=== PATIENT | female | born 1975 | race Caucasian/White ===

== ENCOUNTER → 2017-08-05 | Outpatient (CLI) | payer OTHER | LOC: FIMAGING 08:38 | PROVIDERS: ATTEND Obstetrics & Gynecology | DX: Z12.31 Encounter for screening mammogram for malignant neoplasm of breast (principal) | CPT/HCPCS: G0202 ==

== ENCOUNTER 2018-08-10 18:14 | Emergency (ER) | payer OTHER ==
--- NOTE | 2018-08-10 18:54 | EDPHY ---
H & P Stated Complaint: cp Time Seen by Provider: 08/10/18 18:26 HPI/ROS: CHIEF COMPLAINT: Chest pain HISTORY OF PRESENT ILLNESS: 43-year-old female presents with chest pain. Onset of central chest pain 1 month ago. The pain has been constant, without aggravating or alleviating factors. No associated symptoms. Sometimes the pain migrates to the right upper quadrant and epigastrium. No change with food. Significant stressors recently. No other associated symptoms. REVIEW OF SYSTEMS: complete 10 point ROS reviewed and is negative except for the noted elements in the HPI - Personal History LMP (Females 10-55): Now Current Tetanus/Diphtheria Vaccine: No Current Tetanus Diphtheria and Acellular Pertussis (TDAP): No - Medical/Surgical History Hx Asthma: No Hx Chronic Respiratory Disease: No Hx Diabetes: No Hx Cardiac Disease: No Hx Renal Disease: No Hx Cirrhosis: No Hx Alcoholism: No Hx HIV/AIDS: No Hx Splenectomy or Spleen Trauma: No Other PMH: hypothyroid, - Social History Smoking Status: Former smoker - Physical Exam Exam: General Appearance: Alert, pleasant Eyes: Pupils equal and round, no conjunctival pallor or injection ENT, Mouth: Mucous membranes moist Neck: Normal inspection Respiratory: Lungs are clear to auscultation Cardiovascular: Regular rate and rhythm Gastrointestinal: Abdomen is soft and nontender Neurological: A&O, nonfocal, normal gait Skin: Warm and dry, no rash Extremities: Nontender, no pedal edema Psychiatric: Mood and affect normal Constitutional: Initial Vital Signs Temperature (C) 37 C 08/10/18 18:20 Heart Rate 87 08/10/18 18:20 Respiratory Rate 16 08/10/18 18:20 Blood Pressure 115/82 H 08/10/18 18:20 O2 Sat (%) 99 08/10/18 18:20 O2 Delivery Mode Room Air Allergies/Adverse Reactions: cefaclor [From Ceclor] Allergy (Severe, Verified 08/10/18 18:19) rifampin [Rifampin] Allergy (Severe, Verified 08/10/18 18:19) Penicillins Allergy (Unknown, Verified 08/10/18 18:19) Home Medications: Medication Instructions Recorded Thyroid 08/10/18 Medical Decision Making - Diagnostics EKG Interpretation: EKG interpreted by me reveals normal sinus rhythm, rate 79, low voltage, no ST or T segment changes. Interpretation: o/w normal EKG. Imaging Results: Imaging Impressions Chest X-Ray 08/10/18 18:26 Impression: Query mild airways disease with no superimposed acute abnormality identified to explain chest pain.. Imaging: I viewed and interpreted images myself ED Course/Re-evaluation: This patient presents with 1 month history of persistent atypical chest pain. Stat EKG reveals no evidence of ischemia or dysrhythmia. Chest x-ray is unremarkable. Laboratory tests are normal, including D-dimer. The patient has no risk factors for pulmonary embolism and is low risk per Wells criteria. I feel that I can safely exclude pulmonary embolism in this patient. In addition , there is no evidence of pneumonia, pneumothorax, ACS, dissection, GI etiology. Results discussed with the patient. Laboratory tests are unremarkable and EKG/ chest x-ray are normal. Toradol 30 mg IV given. On discharge, the patient mentioned that she had been having associated acid reflux. Concern for occurred causing her symptoms. Declines GI cocktail and other medications. Encouraged pt to take Mylanta or Maalox at home and consider Zantac OTC. Dietary instructions given. Differential Diagnosis: Differential diagnosis includes though it is not limited to pneumonia, pneumothorax, pulmonary embolism, aortic dissection, pericarditis, acute coronary syndrome. - Data Points Laboratory Results: Laboratory Results 08/10/18 18:36 08/10/18 18:36 08/10/18 08/10/18 08/10/18 18:41 18:36 18:36 WBC RBC Hgb Hct MCV MCH MCHC RDW Plt Count MPV Neut % (Auto) Lymph % (Auto) Buchanan % (Auto) Eos % (Auto) Baso % (Auto) Nucleat RBC Rel Count Absolute Neuts (auto) Absolute Lymphs (auto) Absolute Monos (auto) Absolute Eos (auto) Absolute Basos (auto) Absolute Nucleated RBC Immature Gran % Immature Gran # D-Dimer 0.31 ug/mLFEU ug/mLFEU (0.00-0.50) Sodium 142 mEq/L mEq/L (135-145) Potassium 3.8 mEq/L mEq/L (3.3-5.0) Chloride 106 mEq/L mEq/L (97-110) Carbon Dioxide 23 mEq/l mEq/l (22-31) Anion Gap 13 mEq/L mEq/L (6-14) BUN 9 mg/dL mg/dL (7-23) Creatinine 0.6 mg/dL mg/dL (0.6-1.0) Estimated GFR > 60 Glucose 117 mg/dL H mg/dL (70-100) Calcium 9.7 mg/dL mg/dL (8.5-10.4) Total Bilirubin 0.3 mg/dL mg/dL (0.1-1.4) Conjugated Bilirubin 0.3 mg/dL mg/dL (0.0-0.5) Unconjugated Bilirubin 0.0 mg/dL mg/dL (0.0-1.1) AST 26 IU/L IU/L (14-46) ALT 23 IU/L IU/L (9-52) Alkaline Phosphatase 67 IU/L IU/L (38-126) POC Troponin I 0.00 ng/mL ng/mL (0.00-0.08) NT-Pro-B Natriuret Pep 51 pg/mL pg/mL (0-125) Total Protein 7.5 g/dL g/dL (6.3-8.2) Albumin 4.7 g/dL g/dL (3.5-5.0) Lipase 110 IU/L IU/L (23-300) 08/10/18 18:36 WBC 7.54 10^3/uL 10^3/uL (3.80-9.50) RBC 4.38 10^6/uL 10^6/uL (4.18-5.33) Hgb 13.9 g/dL g/dL (12.6-16.3) Hct 39.5 % % (38.0-47.0) MCV 90.2 fL fL (81.5-99.8) MCH 31.7 pg pg (27.9-34.1) MCHC 35.2 g/dL g/dL (32.4-36.7) RDW 11.9 % % (11.5-15.2) Plt Count 282 10^3/uL 10^3/uL (150-400) MPV 8.8 fL fL (8.7-11.7) Neut % (Auto) 58.4 % % (39.3-74.2) Lymph % (Auto) 30.6 % % (15.0-45.0) Buchanan % (Auto) 7.7 % % (4.5-13.0) Eos % (Auto) 2.3 % % (0.6-7.6) Baso % (Auto) 0.7 % % (0.3-1.7) Nucleat RBC Rel Count 0.0 % % (0.0-0.2) Absolute Neuts (auto) 4.41 10^3/uL 10^3/uL (1.70-6.50) Absolute Lymphs (auto) 2.31 10^3/uL 10^3/uL (1.00-3.00) Absolute Monos (auto) 0.58 10^3/uL 10^3/uL (0.30-0.80) Absolute Eos (auto) 0.17 10^3/uL 10^3/uL (0.03-0.40) Absolute Basos (auto) 0.05 10^3/uL 10^3/uL (0.02-0.10) Absolute Nucleated RBC 0.00 10^3/uL 10^3/uL (0-0.01) Immature Gran % 0.3 % % (0.0-1.1) Immature Gran # 0.02 10^3/uL 10^3/uL (0.00-0.10) D-Dimer Sodium Potassium Chloride Carbon Dioxide Anion Gap BUN Creatinine Estimated GFR Glucose Calcium Total Bilirubin Conjugated Bilirubin Unconjugated Bilirubin AST ALT Alkaline Phosphatase POC Troponin I NT-Pro-B Natriuret Pep Total Protein Albumin Lipase Medications Given: Discontinued Medications Ketorolac Tromethamine (Toradol) 30 mg IVP EDNOW ONE Stop: 08/10/18 19:38 Last Admin: 08/10/18 19:43 Dose: 30 mg Point of Care Test Results: Chemistry 08/10/18 18:41 POC Troponin I 0.00 ng/mL ng/mL (0.00-0.08) Departure - Departure Disposition: Home, Routine, Self-Care Clinical Impression: Chest pain Qualifiers: Chest pain type: precordial pain Qualified Code(s): R07.2 - Precordial pain Condition: Good Instructions: Chest Pain (ED) Additional Instructions: Your chest x-ray, EKG and laboratory tests are normal today. Take Mylanta for discomfort. If Mylanta helps, take Zantac or Pepcid as directed on the packaging. Return for worsening symptoms or any concerns. Referrals: Shelley Cline MD [Medical Doctor] - 2-3 days without fail (Call to make an appointment.)
--- NOTE | 2018-08-10 18:59 | CPEKG ---
Test Reason : OPEN Blood Pressure : / mmHG Vent. Rate : 079 BPM Atrial Rate : 079 BPM P-R Int : 166 ms QRS Dur : 083 ms QT Int : 384 ms P-R-T Axes : 062 052 047 degrees QTc Int : 441 ms Sinus rhythm Confirmed by Melvin Khan ([id number]) on 08/10/2018 6:58:39 PM Referred By: Confirmed By:Melvin Khan
[2018-08-10 19:24] LABS: PLATELET COUNT 282 10^3/uL (150-400)
[2018-08-10] MEDS ORDERED: KETOROLAC 15 MG/1 ML SDV IVP ONE (19:37)
[2018-08-10 20:04] VITALS: BP 110/69
== END 2018-08-10 20:15 | disposition home or self-care (01) ==
DX: R07.2 Precordial pain (principal); E03.9 Hypothyroidism, unspecified; Z85.3 Personal history of malignant neoplasm of breast
CPT/HCPCS: 84484-PO; 96374; J1885